=== PATIENT | male | born 1950 | race Caucasian/White ===

== ENCOUNTER 2021-07-11 15:07 | Outpatient (CLI) | payer MEDICARE, BC, SELFPAY ==
--- NOTE | ~2021-07-11 | US_ITS ---
EXAMINATION: US venous doppler LE RT DATE: 07/11/2021 16:04 INDICATION: Right lower limb swelling. TECHNIQUE: Grayscale ultrasound images without and with compression and Doppler ultrasound images of the right lower extremity veins were obtained. COMPARISON: None. FINDINGS: The visualized portions of right profunda (deep) femoral vein and greater saphenous vein outflow are patent. There is thrombus in right common femoral vein, femoral vein, popliteal vein, and posterior t ibial and peroneal veins. IMPRESSION: 1. Acute deep vein thrombosis. Reviewed, dictated and finalized at location A. L MAID
== END 2021-07-11 15:08 | disposition home or self-care (01) ==
PROVIDERS: PCP Family Medicine; Visit Provider Family Medicine
DX: I82.411 Acute embolism and thrombosis of right femoral vein (principal); I82.431 Acute embolism and thrombosis of right popliteal vein; I82.451 Acute embolism and thrombosis of right peroneal vein; I82.441 Acute embolism and thrombosis of right tibial vein
CPT/HCPCS: 93971

== ENCOUNTER 2021-11-11 10:37 | Outpatient (CLI) | payer MEDICARE, BC, SELFPAY ==
--- NOTE | ~2021-11-11 | US_ITS ---
EXAMINATION: US venous doppler LE RT DATE: 11/11/2021 11:14 INDICATION: Chronic deep venous thrombosis of the right lower limb TECHNIQUE: Dixon scale images without and with compression and Doppler images of the right lower extre mity veins were obtained. COMPARISON: 07/11/2021 FINDINGS: There is persistent thrombosis of the popliteal and femoral veins. The right profunda femor al vein, femoral vein, peroneal trunk, posterior tibial veins, and greater saphenous vein are patent. IMPRESSION: 1. Persistent thrombosis of the right popliteal and femoral veins. Reviewed, dictated and finalized at location A.
== END 2021-11-11 10:38 | disposition home or self-care (01) ==
PROVIDERS: PCP Family Medicine; Visit Provider Family Medicine
DX: I82.431 Acute embolism and thrombosis of right popliteal vein (principal)
CPT/HCPCS: 93971

== ENCOUNTER 2021-11-28 08:52 | Outpatient (CLI) | payer MEDICARE, BC, SELFPAY ==
--- NOTE | 2021-11-28 09:12 | ECHO_ITS ---
Patient Info Name: Hari Mckenzie Age: 71 years : 1950 Gender: Male Ht: 71 in Wt: 310 lbs BSA: 2.72 m2 HR: 67 bpm BP: 164 / 83 mmHg Technical Quality: Poor Exam Date: 11/28/2021 9:38 AM Exam Location: [facility] Patient Status: Outpatient Admit Date: 11/28/2021 Staff Ordering Physician: Lori Mullen MD Ux Researcher: Virginia Frausto RDCS Attending Provider: Lori Mullen MD Referring Physician: Sebas REINA; Exam Type: CA echo doppler color flow Study Info Indications - ESSENTIAL HYPERTENTION I10 - Complete two-dimensional, color flow and Doppler transthoracic echocardiogram is performed. Reason for Poor Study: patient body habitus Summary 1. Complete two-dimensional, color flow and Doppler transthoracic echocardiogram is performed. 2. Technically suboptimal study due to poor sonographic images. 3. Left ventricular chamber dimension is normal. 4. Ventricular septum is moderately sigmoid shaped. No LVOT obstruction. 5. Left ventricular systolic function is normal, estimated at 60-65%. 6. There is mildly increased left ventricular wall thickness. 7. The left ventricular diastolic function is grade I diastolic dysfunction. 8. E/e' 10 is mildly elevated. 9. There is trace tricuspid valve regurgitation. 10. No pulmonary hypertension, estimated pulmonary arterial systolic pressure is 23 mmHg. Left Ventricle Ventricular septum is moderately sigmoid shaped. No LVOT obstruction. E/e' 10 is mildly elevated. Technically suboptimal study due to poor sonographic images. Left ventricular chamber dimension is normal. Left ventricular systolic function is normal, estimated at 60-65%. There is mildly increased left ventricular wall thickness. The left ventricular diastolic function is grade I diastolic dysfunction. Right Ventricle Right ventricular chamber dimension is normal. Right ventricular systolic function is normal. Left Atria Left atrial chamber dimension is normal. Right Atria Right atrial chamber dimension is normal. Aortic Valve The aortic valve is trileaflet. There is no aortic valve stenosis. There is no aortic valve regurgitation. Pulmonic Valve There is no pulmonic regurgitation. Mitral Valve There is no mitral valve stenosis. There is no mitral valve regurgitation. Tricuspid Valve There is trace tricuspid valve regurgitation. No pulmonary hypertension, estimated pulmonary arterial systolic pressure is 23 mmHg. Pericardium/Pleural There is no pericardial effusion. Inferior Vena Cava Normal inferior vena cava with >50% collapse upon inspiration consistent with normal right atrial pressure, 5 mmHg. Aorta The aortic root size at the sinus of Valsalva is normal. Left Ventricular Outflow Tract Name Value Normal LVOT 2D LVOT Diameter 2.1 cm LVOT Doppler LVOT Peak Gradient 7 mmHg LVOT Mean Gradient 4 mmHg LVOT VTI 28 cm LVOT VTI/AV VTI Ratio 0.8 LVOT Stroke Volume 94 ml
--- NOTE | 2021-11-28 14:22 | WPDPFTINT ---
PFT Procedure Performed PFT Procedure Performed Spirometry with Pre/Post Bronchodilator Plethysmography (Lung Vol) Diffusing Cap (DLCO) Flow Vol Loop PFT Interpretation Lung volumes were measured with the body plethysmography method. The diminished expiratory reserve volume is due to obesity. The remaining lung volumes are unremarkable. Spirometry showed diminished expiratory flow rates and a normal FEV1 to FVC ratio 79% indicative of restrictive pattern. Following administration of a bronchodilator there was no significant change in the expiratory flow rates. Lung diffusion capacity is mildly reduced at 67% predicted. Flow volume loop is suggestive of suboptimal effort. Impression: Non specific pattern. Mild reduction in lung diffusion capacity.
== END 2021-11-28 08:53 | disposition home or self-care (01) ==
LOC: ANHCARD 08:55
PROVIDERS: PCP Family Medicine; Visit Provider Family Medicine
DX: I10 Essential (primary) hypertension (principal); R06.02 Shortness of breath; G47.33 Obstructive sleep apnea (adult) (pediatric); E66.01 Morbid (severe) obesity due to excess calories; Z85.51 Personal history of malignant neoplasm of bladder
CPT/HCPCS: 93306; 94060; 94726; 94729

== ENCOUNTER 2022-02-10 09:15 | Outpatient (RCR) | payer MEDICARE, BC, SELFPAY ==
[2022-01-01 10:56] VITALS: BMI 46.3
[2022-01-01 11:05] VITALS: BMI 46.3
== END 2022-02-11 13:45 | disposition home or self-care (01) ==
LOC: ANHDMC 09:15
PROVIDERS: PCP Family Medicine; Visit Provider Family Medicine
DX: E11.65 Type 2 diabetes mellitus with hyperglycemia (principal); Z71.3 Dietary counseling and surveillance; Z71.89 Other specified counseling
CPT/HCPCS: 97802; G0108

== ENCOUNTER 2022-07-28 14:30 | Outpatient (CLI) | payer MEDICARE, BC, SELFPAY ==
[2022-07-29 09:37] LABS: Kit Draw Collected
== END 2022-07-28 14:31 | disposition home or self-care (01) ==
LOC: ANHGOSHLAB 14:33
PROVIDERS: PCP Family Medicine; Visit Provider Family Medicine
DX: R53.83 Other fatigue (principal)
CPT/HCPCS: 36415

== ENCOUNTER 2022-08-21 09:30 | Outpatient (CLI) | payer MEDICARE, BC, SELFPAY ==
--- NOTE | ~2022-08-21 | US_ITS ---
EXAMINATION: US venous doppler LE RT DATE: 08/21/2022 10:18 INDICATION: Acute embolism and thrombosis TECHNIQUE: Grayscale ultrasound images without and with compression and Doppler ultrasound images of the right lower extremity veins were obtained. COMPARISON: 11/11/2021 and 07/11/2021 FINDINGS: Persistent noncompressible thrombus throughout the right femoral and popliteal veins The visualized p ortions of right common femoral vein, profunda (deep) femoral vein, posterior tibial veins, gastrocne mius vein and greater saphenous vein outflow are patent. IMPRESSION: 1. No appreciable change in persistent chronic thrombosis of the right femoral and popliteal veins. Reviewed, dictated and finalized at location A. E RIGGER
== END 2022-08-21 09:31 | disposition home or self-care (01) ==
PROVIDERS: PCP Family Medicine; Visit Provider Family Medicine
DX: I82.4Y1 Acute embolism and thrombosis of unspecified deep veins of right proximal lower extremity (principal); I82.501 Chronic embolism and thrombosis of unspecified deep veins of right lower extremity
CPT/HCPCS: 93971

== ENCOUNTER 2023-02-25 09:31 | Outpatient (CLI) | payer MEDICARE, BC, SELFPAY ==
--- NOTE | 2023-02-25 09:44 | ECHO_ITS ---
Patient Info Name: Hari Mckenzie Age: 72 years : 1950 Gender: Male Ht: 70 in Wt: 310 lbs BSA: 2.70 m2 HR: 71 bpm BP: 139 / 75 mmHg Heart Rhythm: Sinus Rhythm Technical Quality: Fair Exam Date: 02/25/2023 10:09 AM Exam Location: [facility] Patient Status: Outpatient Admit Date: 02/25/2023 Staff Ordering Physician: Lori Mullen MD Correctional Nurse: Shantelle Mckeon RDCS Attending Provider: Lori Mullen MD Referring Physician: Sebas REINA; Exam Type: CA echo dop color flow w con Study Info Indications R55 - Syncope and collapse Complete two-dimensional, color flow and Doppler transthoracic echocardiogram is performed with contrast to opacify the left ventricle and to improve the deliniation of the left ventricle endocardial borders. Contrast/Agitated Saline Contrast/Ag. Saline: Definity Amount: 3.00 ml Administered By: Shantelle Mckeon RDCS Existing IV Access: Yes IV Access Condition: patent with no signs of infiltration Summary 1. Left ventricular chamber dimension is normal. 2. Definity contrast administered improved wall motion interpretation. 3. Left ventricular systolic function is normal, estimated at 65-70%. 4. The left ventricular diastolic function is grade I diastolic dysfunction. 5. E/e' 11 is mildly elevated. 6. There is trace tricuspid valve regurgitation. 7. No pulmonary hypertension, estimated pulmonary arterial systolic pressure is 18 mmHg. Left Ventricle E/e' 11 is mildly elevated. Definity contrast administered improved wall motion interpretation. Left ventricular chamber dimension is normal. Left ventricular systolic function is normal, estimated at 65-70%. The left ventricular diastolic function is grade I diastolic dysfunction. Right Ventricle Right ventricular chamber dimension is normal. Right ventricular systolic function is normal. Left Atria Left atrial chamber dimension is normal. Right Atria Right atrial chamber dimension is normal. Aortic Valve The aortic valve is trileaflet. There is no aortic valve stenosis. There is no aortic valve regurgitation. Pulmonic Valve There is no pulmonic regurgitation. Mitral Valve There is no mitral valve stenosis. There is no mitral valve regurgitation. Tricuspid Valve There is trace tricuspid valve regurgitation. No pulmonary hypertension, estimated pulmonary arterial systolic pressure is 18 mmHg. Pericardium/Pleural There is no pericardial effusion. Inferior Vena Cava Normal inferior vena cava with >50% collapse upon inspiration consistent with normal right atrial pressure, 5 mmHg. Aorta The aortic root size at the sinus of Valsalva is normal. Left Ventricular Outflow Tract Name Value Normal LVOT 2D LVOT Diameter 2.06 cm LVOT Doppler LVOT Peak Gradient 11 mmHg LVOT Mean Gradient 6 mmHg LVOT VTI 31.09 cm LVOT VTI/AV VTI Ratio 0.94 LVOT Stroke Volume 103.72 ml Pulmonic Valve Name Value
[2023-02-25] MEDS: PERFLUTREN LIPID MICROSPHERES 1.5 ML VIAL DILUTED TO 10 ML TOTAL VOLUME IV PUSH (10:47)
--- NOTE | 2023-02-25 10:56 | IVDEFINITY ---
Prior to administration of IV Definity the patient was educated on the risks and benefits of the imaging enhancing agent including potential adverse side effects. The patient verbalized understanding. Allergies were verified. No exclusion criteria were identified and at least one of the following inclusion criteria were met: 1) physician request, 2) patient technically difficult to image (per the [place] [employer] Echocardi[employer] guidelines of two or more segments not discernable within the apical view), or 3) questionable left ventricular function. ?
--- NOTE | 2023-03-01 16:13 | WPDHOLTEREM ---
Holter/Event Monitor Holter/Event Monitor Date of procedure: 02/25/23 Holter/Event Procedure: 24 Hr Holter Monitor Indications: Syncope Conclusion: 1. 24 hour holter monitor on 02/25/23. 2. Underlying rhythm is sinus rhythm. HR range 51-92 bpm; average HR 65 bpm. 3. There are 21 premature supraventricular complexes, 1 supraventricular couplet and 3 supraventricular triplets. No supraventricular tachycardia. 4. There are 4 premature ventricular complexes. No ventricular tachycardia. 5. No sinoatrial or atrioventricular blocks. No significant pauses greater than 2 seconds. 6. No symptoms available for correlation.
== END 2023-02-25 09:32 | disposition home or self-care (01) ==
PROVIDERS: PCP Family Medicine; Visit Provider Family Medicine
DX: R55 Syncope and collapse (principal); I07.1 Rheumatic tricuspid insufficiency; R93.1 Abnormal findings on diagnostic imaging of heart and coronary circulation
CPT/HCPCS: 93225; 93226; C8929; Q9957

== ENCOUNTER 2023-06-09 07:33 | Outpatient (CLI) | payer MEDICARE, BC, SELFPAY ==
--- NOTE | ~2023-06-09 | NM_ITS ---
EXAMINATION: NM adrienne stress w perfusion DATE: 06/09/2023 09:40 INDICATION: Chest pain TECHNIQUE: Rest images were obtained following intravenous administration of 11.5 mCi Tc99m tetrofosm in (Myoview). The patient was infused intravenously with Lexiscan (Regadenoson). Then, 35 mCi Tc99m t etrofosmin (Myoview) was administered intravenously, and stress images were obtained. Data was recons tructed into short axis and horizontal and vertical long axis SPECT images. Gated SPECT images were a lso obtained. COMPARISON: None. FINDINGS: There is no definite reversible or fixed perfusion abnormality to suggest ischemia or infar ction. There is normal left ventricular chamber size, wall motion and ejection fraction. Left ventr icular ejection fraction measures 64%. IMPRESSION: 1. Normal myocardial perfusion at rest and during stress. 2. Left ventricular ejection fraction measuring 64%. Reviewed, dictated and finalized at location A. ERER DIPPER
--- NOTE | 2023-06-09 07:48 | EST_ITS ---
Patient Info Name: Hari Mckenzie Age: 72 years : 1950 Gender: Male Ht: 71 in Wt: 320 lbs BSA: 2.77 m2 HR: 62 bpm BP: 165 / 91 mmHg Heart Rhythm: Sinus Rhythm Exam Date: 06/09/2023 8:33 AM Exam Location: [facility] Patient Status: Outpatient Admit Date: 06/09/2023 Staff Ordering Physician: Clifford Hansen DO Attending Provider: Clifford Hansen DO Exercise Technologist: Judy Isabel CT Exercise Physician: Clifford Hansen DO Exam Type: CA stress adrienne w NM Study Info Indications R07.89 - Other chest pain A regadenoson stress test was performed. Summary 1. 1. Negative lexiscan stress test for ischemic ST changes by ECG criteria. 2. 2. Baseline hypertension. 3. 3. Nuclear scan to follow and will be reported separately. Please correlate with it. 4. 4. Patient informed of the above results. Protocol: Lexiscan Stress ECG Details Stage: REST Duration (min): 2 min : 15 sec HR (bpm): 62 SBP (mmHg): 165 DBP (mmHg): 91 Stage: REST Duration (min): 6 min : 42 sec HR (bpm): 61 SBP (mmHg): 165 DBP (mmHg): 91 Stage: REST Duration (min): 7 min : 8 sec HR (bpm): 60 SBP (mmHg): 165 DBP (mmHg): 91 Stage: STAGE 1 Duration (min): 0 min : 59 sec HR (bpm): 68 SBP (mmHg): 150 DBP (mmHg): 92 Stage: RECOVERY Duration (min): 1 min : 0 sec HR (bpm): 73 SBP (mmHg): 150 DBP (mmHg): 92 Stage: RECOVERY Duration (min): 2 min : 0 sec HR (bpm): 73 SBP (mmHg): 150 DBP (mmHg): 92 Stage: RECOVERY Duration (min): 3 min : 0 sec HR (bpm): 70 SBP (mmHg): 158 DBP (mmHg): 72 Stage: RECOVERY Duration (min): 3 min : 4 sec HR (bpm): 70 SBP (mmHg): 158 DBP (mmHg): 72 Rest HR: 60 bpm Peak HR: 74 bpm Rest Sys BP: 165 mmHg Peak Sys BP: 158 mmHg Max Pred HR: 150 bpm % Max Pred HR: 49 % Target HR: 128 bpm Max RPP: 11,692 bpm*mmHg Termination Reason: Completed protocol Cardiac Symptoms: Shortness of breath Total Time: 1 min : 0 sec Rest Alcaraz BP: 91 mmHg Peak Alcaraz BP: 72 mmHg Total Dose: 0.4 mg Resting ECG Sinus rhythm, T wave abnormality in anterolat/inf leads- consider ischemia. Stress ECG No ST changes. Arrhythmias None. Report Signatures
== END 2023-06-09 07:34 | disposition home or self-care (01) ==
PROVIDERS: PCP Family Medicine; Visit Provider Internal Medicine Cardiovascular Disease
DX: R07.9 Chest pain, unspecified (principal)
CPT/HCPCS: 78452; 93017; A9502; J2785

== ENCOUNTER 2023-11-01 09:28 | Emergency (ER) | payer MEDICARE, BC, SELFPAY ==
[2023-11-01] VITALS (24 sets, daily range): BP systolic 146–163; BP diastolic 70–134; PULSE 59–105; RESP 13–20; TEMP 36.3; O2SAT 92–100
--- NOTE | ~2023-11-01 | CT_ITS ---
EXAMINATION: CTA brain carotid DATE: 11/01/2023 12:43 INDICATION: Left arm and leg numbness. Dizziness. TECHNIQUE: Computed tomographic angiography (CTA) of the head was performed without and with 100 mL O mnipaque-350 intravenous contrast. CTA of the neck was performed with intravenous contrast. Automated exposure control and iterative reconstruction technique were employed. The dose-length product was 1 796.81 mGy-cm. Maximum intensity projection and volume rendered 3D-reconstructions were created by joanna medina technologist on a separate workstation. COMPARISON: None. FINDINGS: HEAD CTA: There is no intracranial hemorrhage, acute infarction, or abnormal intracranial mass lesion . The ventricles are normal in size. The orbits are normal. There is mild mucosal thickening in the p aranasal sinuses. The mastoid air cells are normal. The vertebral arteries are codominant. There is n o significant stenosis of the basilar artery or the posterior cerebral arteries. There is a significa nt stenosis of the intracranial internal carotid arteries or anterior or middle cerebral arteries. An terior communicating artery is normal. Posterior communicating arteries are not identified. There is no aneurysm. NECK CTA: There are no pathologically enlarged lymph nodes. There is no significant stenosis of the v ertebral arteries. There is plaque in the proximal internal carotid arteries. There is 0% stenosis of the proximal right internal carotid artery relative to normal distal artery lumen diameter (NASCET c riteria). There is 0% stenosis of the proximal left internal carotid artery relative to normal distal artery lumen diameter. There is severe cervical spondylosis. IMPRESSION: 1. Normal brain. No aneurysm or significant intracranial canal stenosis. 2. 0% stenosis of the proximal internal carotid arteries relative to normal distal artery lumen diame ters (NASCET criteria). Reviewed, dictated and finalized at location A. IMPRESSION: 1. Normal brain. No aneurysm or significant intracranial canal stenosis. 2. 0% stenosis of the proximal internal carotid arteries relative to normal dis matthias artery lumen diameters (NASCET criteria).
--- NOTE | ~2023-11-01 | XR_ITS ---
EXAMINATION: XR chest 1V portable DATE: 11/01/2023 12:26 INDICATION: Shoulder pain. Altered mental status. TECHNIQUE: A single frontal view of the chest was obtained. COMPARISON: Chest 2 views 05/29/2011 FINDINGS: There is no pneumonia, pleural effusion, or pneumothorax. Cardiomegaly is noted. There are old healed left rib fractures. There is old healed fracture of left clavicle. IMPRESSION: 1. Cardiomegaly. Reviewed, dictated and finalized at location A. IMPRESSION: 1. Cardiomegaly.
--- NOTE | 2023-11-01 11:35 | ED.NEUROSD ---
HPI - Neuro Symptoms/Deficit General Chief Complaint: Neuro Symptoms/Deficit Stated Complaint: dizzy, numbness two days ago Time Seen by Provider: 11/01/23 11:20 Source: patient and family () Mode of arrival: ambulatory Limitations: no limitations History of Present Illness HPI Narrative: Right hand dominant male presents with complaint of dizzyness and numbness for 2 days, since Wednesday at approximately 12noon. Paresthesias are in the lower part of his left leg and his left fingers. Thought perhaps at first it was similar to his prior history of trigger finger in left hand given he couldn't make a fist. The inability to not make a fist resolved but the numbness remained. Also having bilateral shoulder pain. He has also felt like he has brain fog , being occasionally confused. He states sometimes he can't think of the right thing to say and is having some intermittent memory issues. Patient states he feels his speech is different. states she has not noticed a difference believes this is his baseline. He had previously gone through a work up for dizzy spells including undergoing a hearing test (audiology?), stress test, and ultrasound carotid and cardiac echo which were reportedly normal. Approximately 6 weeks ago advised to and stopped isosorbide mononitrate and Xarelto (he had taken this for approximate 1.5 years after DVT diagnosis) and had been improving until now. Also Stopped desipramine for his IBS. Related Data Home Medications Medication Instructions Recorded Confirmed pregabalin 25 mg capsule 25 mg PO TID 10/19/23 10/19/23 Allergies Allergy/AdvReac Type Severity Reaction Status Date / Time lisinopril Allergy Unknown cough Verified 11/01/23 10:04 cephalexin AdvReac Severe Diarrhea Verified 11/01/23 10:04 gabapentin AdvReac Severe gi side Verified 11/01/23 10:04 effects metformin AdvReac gi upset/ Verified 11/01/23 10:[address] [facility] Past Medical History Medical History Granuloma annulare History of orthostatic hypotension Hx of bladder cancer Hx of deep venous thrombosis Meralgia paresthetica of right side Postherpetic neuralgia Right hand dominant Right leg DVT us :persistent chronic thrombosis of the right femoral and popliteal veins. onset:1.7.11/12/2021 R leg doppler:. Persistent thrombosis of the right popliteal and femoral veins.DASH Risk for recurrent DVT score. continue anticoag x 6 months Trigger finger, left Umbilical hernia without mention of obstruction or gangrene Surgical History Surgical History H/O hernia repair H/O umbilical hernia repair History of carpal tunnel release History of cholecystectomy History of urologic surgery [place] Status post radical cystoprostatectomy Social History Social History Smoking packs per day: 1 Smoking cigarettes per day: 20.0 Years smoked: 30 Smoking pack-years: 30.00 Smoking status: Former smoker Tobacco type: cigarettes Alcohol intake: never Lack of Transportation: No Lack of Food: Never True Current Housing: I Have Housing Concerned About Future Housing: No Difficulty Paying Gas/Electric Bills: No Difficulty Paying for Meds: No Currently Unemployed: No Education: Bachelor's Degree Difficulty w/ Childcare or Family Care: No Living arrangements: with family Additional living arrangements comments: Gender identity (if verbalized by the patient): Male Spiritual care concerns: No Exam Narrative: GENERAL: Well-appearing, well-nourished, and in no acute distress. HEAD: Normocephalic, atraumatic. EYES: Non injected, non icteric. EOMI without nystagmus. Peripheral nails normal. ENT: Nares clear, no rhinorrhea or epistaxis. NECK: Supple. CHEST: Speaking in full
--- NOTE | 2023-11-01 11:51 | ECG_ITS ---
SEE SCANNED COPY FOR CONFIRMED REPORT MTDD
[2023-11-01 12:11] LABS: Basophils Percent Auto 0.5 % (0.2-1.2); Eosinophils Absolute Auto 0.2 K/mm3 (0-0.3); Eosinophils Percent Auto 2.7 % (0-4.4); Hematocrit 42.9 % (42.0-52.0); Hemoglobin 14.1 g/dL (14.0-18.0); Immature Granulocyte Absolute 0.04 K/mm3 (0.00-0.031); Immature Granulocyte Percent A 0.5 % (0-0.5); Lymphocytes Absolute Auto 1.24 K/mm3 (0.9-3.2); Lymphocytes Percent Auto 14.4 % (18.3-44.2); Mean Corpuscular HGB Conc 32.9 g/dl (32-36); Mean Corpuscular Hemoglobin 27.3 pg (26-34); Mean Platelet Volume 9.5 fl (7.4-10.4); Monocytes Absolute Auto 0.8 K/mm3 (0.1-0.6); Monocytes Percent Auto 9.1 % (2.6-8.5); Neutrophils Absolute Auto 6.3 K/mm3 (1.3-6.7); Neutrophils Percent Auto 72.8 % (45.5-73.1); Platelet Count Result 250 k/mm3 (150-375); Red Blood Count 5.17 M/mm3 (4.6-6.20); Red Cell Distribution Width 14.7 % (11.5-14.5); White Blood Count 8.6 K/mm3 (4.5-10.0)
[2023-11-01] MEDS: MECLIZINE HCL 25 MG TABLET PO (12:12)
[2023-11-01 12:25] LABS: Alanine Aminotransferase 35 U/L (6-50); Albumin Level 4.3 g/dL (3.5-5.1); Alkaline Phosphatase 90 U/L (38-126); Anion Gap 10 mmol/L (4-12); Aspartate Amino Transferase 34 U/L (17-59); Bilirubin,Total 0.5 mg/dL (0.2-1.3); Blood Urea Nitrogen 20 mg/dL (9-20); Calcium 9.1 mg/dL (8.4-10.2); Carbon Dioxide 21 mmol/L (22-30); Chloride 107 mmol/L (98-107); Creatine Kinase 137 U/L (55-170); Estimated CRCL calculation 72 ml/min; Estimated Glomerular Filt Rate 60; Glucose 178 mg/dL (65-110); Magnesium 1.7 mg/dL (1.6-2.3); Sodium 138 mmol/L (137-145)
[2023-11-01 12:30] LABS: Appearance Urine Clear (Clear); Bilirubin Urine Negative (Negative); Blood Urine Trace (Negative); Color Urine Yellow (Yellow); Glucose Urine UA Negative (Negative); Ketones Urine Negative (Negative); Leukocyte Esterase Ur Trace LEU/UL (Negative); Nitrate Urine Negative (Negative); Protein Urine Negative (Negative); Specific Grav Ur 1.016 (1.001-1.035); Urobilinogen Urine 0.2 mg/dL (<2.0); pH Urine 5.5 (5.0-9.0)
[2023-11-01 12:48] LABS: Influenza A QL RT-PCR Negative (Negative); Influenza B QL RT-PCR Negative (Negative); RSV RNA, RT-PCR Negative (Negative); SARS-CoV-2 RNA PCR Negative (Negative)
[2023-11-01 13:16] LABS: Add Urine Microscopic? YES; WBC Clumps Urine Present /hpf
[2023-11-01 13:17] LABS: Bacteria Urine Trace /hpf; Mucus Urine Present /lpf
[2023-11-01] MEDS: SULFAMETHOXAZOLE/TRIMETHOPRIM 800/160 MG DS TABLET 1 TAB PO (14:03)
== END 2023-11-01 15:47 | disposition home or self-care (01) ==
PROVIDERS: Emergency Provider Student in an Organized Health Care Education/Training Program; PCP Family Medicine
DX: N39.0 Urinary tract infection, site not specified (principal); R20.2 Paresthesia of skin; R73.9 Hyperglycemia, unspecified; Z20.822 Contact with and (suspected) exposure to COVID-19; K58.9 Irritable bowel syndrome, unspecified; Z85.51 Personal history of malignant neoplasm of bladder; Z86.718 Personal history of other venous thrombosis and embolism; Z87.891 Personal history of nicotine dependence; Z90.49 Acquired absence of other specified parts of digestive tract; I51.7 Cardiomegaly
CPT/HCPCS: 36415; 70496; 70498; 71045; 80053; 81001; 82550; 83735; 85025; 87086; 87637; 93005; 99284; A9270; Q9967

== ENCOUNTER 2024-06-16 13:26 | Outpatient (CLI) | payer MEDICARE, BC, SELFPAY ==
--- NOTE | ~2024-06-16 | MR_ITS ---
MRI of the lumbar spine Clinical History: Back pain, sciatica Technique: Axial T2-weighted images, and sagittal T1-weighted, T2-weighted, and T2 fat-sat images wer e acquired. Findings: There is no fracture or subluxation of the lumbar spine. Vertebral bodies maintain normal h eight and line. No suspicious bone marrow signal abnormality seen. At L1-L2, there is no disc bulge or herniation. There is moderate facet hypertrophy. No spinal canal stenosis. There is mild bilateral neural foraminal narrowing. At L2-L3, there is minimal disc bulge with moderate to advanced facet hypertrophy. No saravanan central c anal stenosis. There is minimal bilateral neural foraminal narrowing. At L3-L4, there is minimal disc bulge with prominent facet hypertrophy. No central canal stenosis. Th ere is mild to moderate right neural foraminal narrowing, and mild left neural foraminal narrowing. At L4-L5, there is diffuse disc bulge with moderate facet arthropathy. There is mild central canal st enosis. There is moderate bilateral neural foraminal narrowing. At L5-S1, there is diffuse disc bulge with advanced facet arthropathy. No central canal stenosis. The re is moderate to advanced bilateral neural foraminal narrowing. Paravertebral soft tissues are unremarkable. Impression: Moderate degenerative spondylosis overall, worst at the lower lumbar spine. Please see details above. Reviewed, dictated and finalized at [facility]. CARDIOVASCULAR Impression: Moderate degenerative spondylosis overall, worst at the lower lumbar spine. Ple ase see details above.
== END 2024-06-16 13:27 | disposition home or self-care (01) ==
LOC: GOSHIMG 13:27
PROVIDERS: PCP Family Medicine; Visit Provider Family Medicine
DX: M54.31 Sciatica, right side (principal); M47.896 Other spondylosis, lumbar region
CPT/HCPCS: 72148

== ENCOUNTER 2024-12-26 11:15 | Outpatient (CLI) | payer MEDICARE, BC, SELFPAY ==
--- NOTE | ~2024-12-26 | XR_ITS ---
[id number] Ordering provider: Lori Mullen MD History: . Pain/bruising dorsal Rt foot, plywood fell onto foot . Comparison: None. FINDINGS: BONES: No acute fracture or dislocation. JOINT SPACES: Normal. No tarsal coalition. SOFT TISSUES: Soft tissue swelling over the dorsum of the foot. Calcaneal spur. Ossification of the insertion of the tendo Achilles. IMPRESSION: No acute osseous abnormality of the right foot. Reviewed, dictated and finalized at location A.
== END 2024-12-26 11:16 | disposition home or self-care (01) ==
LOC: GOSHIMG 11:16
PROVIDERS: PCP Family Medicine; Visit Provider Family Medicine
DX: M79.671 Pain in right foot (principal); E11.40 Type 2 diabetes mellitus with diabetic neuropathy, unspecified
CPT/HCPCS: 73630

== ENCOUNTER 2025-01-09 08:46 | Outpatient (CLI) | payer MEDICARE, BC, SELFPAY ==
--- NOTE | ~2025-01-09 | MR_ITS ---
MRI of the right foot Other specified soft tissue disorder TECHNIQUE: Axial proton-density and proton-density fat-sat images, sagittal T1-weighted and STIR imag es, and coronal T1-weighted and proton-density fat-sat images were performed. FINDINGS: No bone marrow edema or fracture seen. No evidence for osteomyelitis. There is mild to mode rate degenerative change of the third tarsometatarsal joint. There is mild degenerative change of the first TMT joint. Remaining joint spaces are relatively well-preserved. No significant joint effusion seen. Plantar fascia intact. Flexor and extensor tendons are intact. No intermetatarsal bursitis or Palacios' s neuroma evident. There is extensive subcutaneous soft tissue edema throughout the dorsum of the foot. There is a 3.7 x 1.2 x 2.9 cm T2 hyperintense, T1 mildly hyperintense collection in the dorsum of the foot, most comp atible with hematoma, the level of the tarsometatarsal joints. No other soft tissue mass or fluid col lection seen. IMPRESSION: 3.7 x 1.2 x 2.8 cm hematoma in the subcutaneous soft tissues of the dorsal aspect of the foot at the level of the TMT joints. Background diffuse subcutaneous soft tissue edema over the dorsum of the foot. Degenerative changes of the first and third TMT joints, as above. Reviewed, dictated and finalized at [facility]. IMPRESSION: 3.7 x 1.2 x 2.8 cm hematoma in the subcutaneous soft tissues of the dorsal aspe ct of the foot at the level of the TMT joints. Background diffuse subcutaneous soft tissue edema over the dorsum of the foot. Degenerative changes of the first and third TMT joints, as above.
== END 2025-01-09 08:47 | disposition home or self-care (01) ==
LOC: GOSHIMG 08:46
PROVIDERS: PCP Family Medicine; Visit Provider Family Medicine
DX: M79.89 Other specified soft tissue disorders (principal)
CPT/HCPCS: 73718